=== PATIENT | female | born 1965 ===

== ENCOUNTER 2016-10-01 10:52 | Outpatient (CLI) | payer OTHER ==
--- NOTE | 2016-10-01 15:30 | Ultrasound Report ---
Pelvic and transvaginal sonography: History: Post menopausal bleeding. Findings: Uterus measures 7.3 x 3.1 x 4.4 cm. Endometrial thickness 11 mm. No fluid in the endometrium. No mass. Right ovary 2.9 x 2 cm. No mass. Left ovary 1.6 x 0.7 x 1.7 cm. No mass. No fluid in the cul-de-sac. Impression: Thick endometrium. No mass of the uterus or adnexa.
== END 2016-10-01 10:53 | disposition home or self-care (01) ==
LOC: SPVWC 10:52
PROVIDERS: ATTEND Family Medicine
DX: N95.0 Postmenopausal bleeding (principal); R93.8 Abnormal findings on diagnostic imaging of other specified body structures
CPT/HCPCS: 76830; 76856